=== PATIENT | female | born 1990 | race Caucasian/White ===

== ENCOUNTER 2018-08-01 07:26 | Emergency (ER) | payer OTHER ==
[~2018-08-01] VITALS: Ht 167.6 cm; Wt 79.4 kg
[2018-08-01 07:29] VITALS: BP 148/96
[2018-08-01] MEDS ORDERED: AZIT250T PO (07:46)
--- NOTE | 2018-08-01 07:46 | PHYS DOC ---
Adult General Chief Complaint Chief Complaint: SORE THROAT [facility] HPI Patient is a 28 year old reason to ER today for evaluation of sore throat for the last few day. Patient says she has history of recurrent tonsillitis. Patient denies any headache, no neck pain. Patient had no problem opening or close her mouth. She denies any fever. She says amoxicillin usually doesn't work for her. Patient said usually Z-Camron WILL take care of her problem. Review of Systems Review of Systems Constitutional: Denies fever or chills [] Eyes: Denies change in visual acuity, redness, or eye pain [] HENT: Denies nasal congestion. POSITIVE FOR sore throat [] Respiratory: Denies cough or shortness of breath [] Cardiovascular: No additional information not addressed in HPI [] GI: Denies abdominal pain, nausea, vomiting, bloody stools or diarrhea [] : Denies dysuria or hematuria [] Musculoskeletal: Denies back pain or joint pain [] Integument: Denies rash or skin lesions [] Neurologic: Denies headache, focal weakness or sensory changes [] Endocrine: Denies polyuria or polydipsia [] All other systems were reviewed and found to be within normal limits, except as documented in this note. Allergies Allergies Allergies Coded Allergies Type Severity Reaction Last Updated Verified No Known Drug Allergies 08/01/18 No Physical Exam Physical Exam Constitutional: Well developed, well nourished, no acute distress, non-toxic appearance. [] HENT: Normocephalic, atraumatic, bilateral external ears normal, oropharynx moist with erythema, no oral exudates, nose normal. [] Eyes: PERRLA, EOMI, conjunctiva normal, no discharge. [] Neck: Normal range of motion, no tenderness, supple, no stridor. [] Cardiovascular:Heart rate regular rhythm, no murmur [] Lungs & Thorax: Bilateral breath sounds clear to auscultation [] Abdomen: Bowel sounds normal, soft, no tenderness, no masses, no pulsatile masses. [] Skin: Warm, dry, no erythema, no rash. [] Back: No tenderness, no CVA tenderness. [] Extremities: No tenderness, no cyanosis, no clubbing, ROM intact, no edema. [] Neurologic: Alert and oriented X 3, normal motor function, normal sensory function, no focal deficits noted. [] Psychologic: Affect normal, judgement normal, mood normal. [] Current Patient Data Vital Signs Vital Signs Date Time Temp Pulse Resp B/P (MAP) Pulse Ox O2 Delivery O2 Flow Rate FiO2 08/01/18 07:29 99.2 112 17 148/96 (113) 97 Room Air 99.2 EKG EKG [] Radiology/Procedures Radiology/Procedures [] Course & Med Decision Making Course & Med Decision Making Pertinent Labs and Imaging studies reviewed. (See chart for details) [] Dragon Disclaimer Dragon Disclaimer This electronic medical record was generated, in whole or in part, using a voice recognition dictation system. Departure Departure Impression: Primary Impression: Tonsillitis Disposition: HOME, SELF-CARE Condition: STABLE Referrals: NO PCP (PCP) follow up with your doctor if not improved in 2 days Patient Instructions: Tonsillectomy, Information Before and After Scripts Azithromycin (ZITHROMAX) 250 Mg Tablet 1 PKG PO UD, #6 TAB Prov: SARA CORREA DO 08/01/18 ASRA CORREA DO Aug 01, 2018 07:46
[2018-08-01] MEDS ORDERED: METH-364 PO (07:57)
[2018-08-01] MEDS ORDERED: GABA300C18 PO (08:00)
[2018-08-01] MEDS ORDERED: CETI10TA22 PO (08:00)
[2018-08-01] MEDS ORDERED: [UNRECOGNIZED DRUG - OTHER] (08:00)
== END 2018-08-01 08:00 | disposition home or self-care (01) ==
LOC: ER 07:26
DX: J03.90 Acute tonsillitis, unspecified (principal)
CPT/HCPCS: 99283

== ENCOUNTER 2018-08-09 08:12 | Emergency (ER) | payer OTHER ==
[~2018-08-09] VITALS: Ht 167.6 cm; Wt 77.1 kg
[~2018-08-09 08:12] MED LIST: AZIT250T PO; CETI10TA22 PO; GABA300C18 PO; METH-364 PO; [UNRECOGNIZED DRUG - OTHER]
[2018-08-09] MEDS ORDERED: PENICILLIN G BENZATHINE LA 1,200,000 UNIT/2 ML DISP.SYRIN. IM ONE (10:15)
[2018-08-09] MEDS ORDERED: DEXAMETHASONE SOD PHOS 20 MG/5 ML VIAL. IM ONE (10:15)
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
[2018-08-09 10:38] VITALS: BP 139/65
== END 2018-08-09 10:39 | disposition home or self-care (01) ==
LOC: ER 08:12
DX: J02.9 Acute pharyngitis, unspecified (principal); R50.9 Fever, unspecified
CPT/HCPCS: 96372; 99283; J0561; J1100

== ENCOUNTER 2018-09-09 13:34 | Emergency (ER) | payer OTHER ==
[~2018-09-09] VITALS: Ht 167.6 cm; Wt 72.6 kg
[2018-09-09] MEDS ORDERED: methylPREDNISolone SOD SUCC PF 125 MG/2 ML VIAL. IV ONE (14:00)
[2018-09-09] MEDS ORDERED: KETOROLAC 30 MG/ML VIAL. IV ONE (14:00)
[2018-09-09] MEDS ORDERED: IV NORMAL SALINE 1000ML BAG 1,000 ML IV ONE (14:00)
[2018-09-09] MEDS ORDERED: diphenhydrAMINE 50 MG/ML VIAL IVP ONE (14:00)
[2018-09-09] MEDS ORDERED: MORPHINE SULFATE 4 MG/ML VIAL. IV ONE ×2 (14:00→15:45)
[2018-09-09] MEDS ORDERED: PIPERACILLIN/TAZOBACTAM 3.375 GM in IV NORMAL SALINE 50ML 50 ML IV ONE (14:00)
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
[2018-09-09 14:08] LABS: BASO % 0 % (0-3); EOS # 0.1 x10^3/uL (0.0-0.7); EOS % 1 % (0-3); HEMATOCRIT 40.8 % (36.0-47.0); HEMOGLOBIN 13.7 g/dL (12.0-15.5); LYMPH % 24 % (24-48); MEAN CORPUSCULAR HEMOGLOBIN 28 pg (25-35); MEAN CORPUSCULAR HGB CONC 34 g/dL (31-37); MEAN CORPUSCULAR VOLUME 84 fL (79-100); MONO # 0.9 x10^3/uL (0.0-1.1); MONO % 11 % (0-9); NEUT # 5.4 x10^3uL (1.8-7.7); NEUT % 64 % (31-73); PLATELET COUNT 350 x10^3/uL (140-400); RED BLOOD COUNT 4.86 x10^6/uL (3.50-5.40); RED CELL DISTRIBUTION WIDTH 14.2 % (11.5-14.5); WHITE BLOOD COUNT 8.4 x10^3/uL (4.0-11.0)
[2018-09-09 14:18] LABS: CALCIUM 9.8 mg/dL (8.5-10.1); CREATININE 0.5 mg/dL (0.6-1.0); GFR 144.9; POTASSIUM 3.7 mmol/L (3.5-5.1)
[2018-09-09] MEDS ORDERED: CONTRAST GIVEN. MC PRN (14:45)
[2018-09-09] MEDS ORDERED: IOHEXOL 300 MG/ML 100ML VIAL. IV ONE (14:45)
--- NOTE | 2018-09-09 16:33 | RAD ---
Examination: CT SOFT TISSUE NECK W/CONTRAST History: RIGHT SIDED NECK PAIN AND SWELLING HX OF SX TONSILLECTOMY X4 DAYS AGO OMNI 300 75 mL Comparison/Correlation: None Findings: Axial images of the neck were obtained following IV contrast. Sagittal and coronal reformatted images provided. Imaging was performed from the level of the third ventricle to the aorticopulmonary window. Visualized brain is unremarkable. Globes and optic nerves are normal. Extraocular muscles are unremarkable. Moderate-sized castillo bullosa is present. No significant opacification of the paranasal sinuses. The frontal sinuses are hypoplastic. The pharynx is symmetric. No loculated collections. Parotid and submandibular glands are unremarkable. No enlarged cervical lymph nodes. Multiple lymph nodes bilaterally involving the posterior triangles are present and presumably reactive. Thyroid gland is diffusely mildly enlarged but no focal dominant lesion evident. Visualized trachea is unremarkable. Bony structures are unremarkable for the patient's age. Impression: No inflammatory process or collection in this patient who reportedly is status post cholecystectomy. Multiple bilateral posterior triangle lymph nodes are present but not enlarged. These are presumably reactive. PQRS Compliance Statement: One or more of the following individualized dose reduction techniques were utilized for this examination: 1. Automated exposure control 2. Adjustment of the mA and/or kV according to patient size 3. Use of iterative reconstruction technique Electronically signed by: Chuck Blake MD (09/09/2018 4:30 PM) [facility]
[2018-09-09 17:15] VITALS: BP 122/81
[2018-09-09] MEDS ORDERED: HYDR15SO6 PO (17:20)
== END 2018-09-09 17:31 | disposition home or self-care (01) ==
LOC: ER 13:34
DX: G89.18 Other acute postprocedural pain (principal); J02.9 Acute pharyngitis, unspecified; R13.10 Dysphagia, unspecified; Z90.89 Acquired absence of other organs
CPT/HCPCS: 36415; 70491; 80048; 81025; 85025; 96365; 96375; 96376; 99285; J1200; J1885; J2270; J2543; J2930; J7030; Q9967; 96374

== ENCOUNTER 2018-12-04 16:36 | Emergency (ER) | payer MEDICAID, OTHER ==
[~2018-12-04 16:36] MED LIST changes: +HYDR15SO6 PO
== END 2018-12-04 17:25 | disposition left against medical advice (07) ==
LOC: ER 16:36
DX: R50.9 Fever, unspecified (principal); R51 Headache; R09.81 Nasal congestion; M79.10 Myalgia, unspecified site; Z53.21 Procedure and treatment not carried out due to patient leaving prior to being seen by health care provider